=== PATIENT | male | born 1950 | race Caucasian/White ===

== ENCOUNTER 2020-09-09 09:45 | Day surgery (SDC) | payer BC, SELFPAY ==
[2020-09-05 11:46] VITALS: BMI 30.5
--- NOTE | 2020-09-07 14:54 | HO.ANESPROP2 ---
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 Hx of colonoscopy Hx of right inguinal hernia repair Hx of umbilical hernia repair Social History Social History Smoking Status: Unknown if ever smoked Advance Directives: No Advance Directives Information Provided: No Advance Directives on File: No Meds Allergies Allergy/AdvReac Type Severity Reaction Status Date / Time acetaminophen [From Percocet] Allergy Unknown Verified 09/05/20 11:46 oxycodone [From Percocet] Allergy Unknown Verified 09/05/20 11:46 Penicillins Allergy Hives Verified 09/05/20 11:46 phenytoin [From Dilantin] Allergy Unknown Verified 09/05/20 11:46 Home Medications Medication Instructions Recorded Confirmed Type albuterol sulfate 2 puff PO Q6H PRN 09/08/20 09/08/20 History furosemide 1 tab PO DAILY 09/08/20 09/08/20 History hydrocodone-acetaminophen 1 tab PO Q6H PRN 09/08/20 09/08/20 History metoprolol tartrate 1 tab PO BID 09/08/20 09/08/20 History omeprazole 1 cap PO DAILY 09/08/20 09/08/20 History pravastatin 1 tab PO DAILY 09/08/20 09/08/20 History valsartan 2 tab PO DAILY 09/08/20 09/08/20 History Exam Exam Date and Time: September 07, 2020 1454 Height,Weight and Vital Signs: Height 5 ft 10 in Weight 96.615 kg Assessment and Plan Assessment Anesthesia Assessment: Chart Reviewed Documented by User: Terry Mott MD 09/09/20 10:05 PENDING SALE TO [facility] Past Medical History Medical History Arthritis GERD (gastroesophageal reflux disease) History of atrial fibrillation History of basal cell cancer History of diverticulosis Hyperlipidemia Hypertension MARIZOL (obstructive sleep apnea) Surgical History Surgical History History of back surgery History of basal cell carcinoma (BCC) excision 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 Hx of colonoscopy Hx of right inguinal hernia repair Hx of umbilical hernia repair Social History Social History Smoking Status: Unknown if ever smoked Advance Directives: No Advance Directives Information Provided: No Advance Directives on File: No Meds Allergies Allergy/AdvReac Type Severity Reaction Status Date / Time acetaminophen [From Percocet] Allergy Unknown Verified 09/05/20 11:46 oxycodone [From Percocet] Allergy Unknown Verified 09/05/20 11:46 Penicillins Allergy Hives Verified 09/05/20 11:46 phenytoin [From Dilantin] Allergy Unknown Verified 09/05/20 11:46 Home Medications Medication Instructions Recorded Confirmed Type albuterol sulfate 2 puff PO Q6H PRN 09/08/20 09/08/20 History furosemide 1 tab PO DAILY 09/08/20 09/08/20 History hydrocodone-acetaminophen 1 tab PO Q6H PRN 09/08/20 09/08/20 History metoprolol tartrate 1 tab PO BID 09/08/20 09/08/20 History omeprazole 1 cap PO DAILY 09/08/20 09/08/20 History pravastatin 1 tab PO DAILY 09/08/20 09/08/20 History valsartan 2 tab PO DAILY 09/08/20 09/08/20 History Exam Airway Mallampati Class: II TM Dist: >3cm Neck ROM: Full Loose/Missing/Broken Teeth: Yes Heart: RRR Lungs: Satting 95% on RA Assessment and Plan Assessment Anesthesia Assessment: Anesthesia Plan Discussed and Chart Reviewed Final Anesthetic Review NPO: Yes ASA Class: III Final Preanesthetic Review: No Changes in Pt Med Stat, Meds/Allgs Chart Reviewed, Consent Obtained/Reviewed and Anes Risks/Benef Reviewed Patient Risk: Intermediate Procedure Risk: Low Anesthetic Plan Anesthetic Plan: MAC: Disposition: Standard PACU
[2020-09-09 10:27] VITALS: BP 132/79; PULSE 82; RESP 16; TEMP 36.5; O2SAT 97
[2020-09-09 11:17] VITALS: BP 88/57; PULSE 72; RESP 20; TEMP 36.2; O2SAT 98
--- NOTE | 2020-09-09 11:19 | PM.OP ---
Brief Operative Note Date of Service: 09/09/20 Pre-op diagnosis: GERD, Odynophagia Post-op diagnosis: other (Proximal esophageal mass, Hiatal hernia, GERD) Procedure: EGD with biopsies and brushings Surgeon: Jayme Martínez Anesthesia: MAC Estimated blood loss (mL): 4.0 Pathology: other (A. Esophageal mass at 20cm B. Brushings of esophageal mass at 20cm) Condition: stable Disposition: PACU
[2020-09-09 11:32] VITALS: BP 103/67; PULSE 74; RESP 18; TEMP 36.2; O2SAT 95
--- NOTE | 2020-09-09 11:39 | OP_ITS ---
SURGEON: Jayme Martínez MD PREOPERATIVE DIAGNOSIS: POSTOPERATIVE DIAGNOSIS: PROCEDURE PERFORMED: Esophagogastroduodenoscopy with biopsies and brushings. Full consent has been obtained from him for this, including risks of bleeding and perforation. ESTIMATED BLOOD LOSS: COMPLICATIONS: ANESTHESIA: Monitored anesthesia care. ASSISTANTS: SPECIMENS: PREOPERATIVE DIAGNOSES: Gastroesophageal reflux and odynophagia. POSTOPERATIVE DIAGNOSES: Gastroesophageal reflux and odynophagia, very proximal esophageal mass, hiatal hernia. DESCRIPTION OF PROCEDURE: The patient was placed in the left lateral decubitus position. The Olympus video gastroscope was passed in the posterior oropharynx and upper esophagus under direct vision. In the very proximal esophagus, was what appeared to be an ulcerated and friable lesion. I was able to easily pass this with the scope. The scope was advanced to the distal esophagus. The gastroesophageal junction appeared at 39 cm. There was some slight irregularity consistent with reflux, but no evidence of esophagitis nor any definitive evidence of Pineda's mucosa. The scope entered into the stomach. There was a small hiatal hernia. The scope was advanced to the pylorus and duodenum cannulated to the descending portion. The duodenum including the bulb appeared normal without mass or ulceration. The scope was withdrawn back into the stomach. The gastric antrum and body appeared normal with good peristalsis. The scope was retroflexed visualizing the proximal stomach carefully, which appeared normal, without any sign of mass or ulceration. The scope was straightened out and withdrawn back into the esophagus. Biopsies were obtained at the EG junction at 39 cm. The scope was then withdrawn through the remainder of the esophagus. The suspicious lesion was noted at between 18 and 20 cm, just beneath the upper esophageal sphincter. This encompassed approximately 1/3 to 1/2 circumference of the esophagus. The lesion itself was quite friable. It appeared to have some overlying exudate consistent with possible Ciera. Multiple biopsies were obtained from the lesion and it was quite friable. I also obtained cytology brushings. It did seem to extend at least into the very proximal esophagus, although not definitively involving the upper esophageal sphincter. The scope was withdrawn. I was able to visualize the oropharynx fairly well and the vocal cord area appeared normal. I did not visualize any definitive lesions in the oropharynx. The patient tolerated the procedure well and was returned to the recovery area in stable condition. IMPRESSION: 1. Suspicious lesion in the very proximal esophagus, status post biopsies and brushings. Rule out malignancy and/or ciera infection. 2. Hiatal hernia, gastroesophageal reflux. PLAN: The results of the biopsy will be checked. Further plans will be made accordingly depending upon the results in regard to need for oncology consultation, thoracic surgery consultation, and/or ENT referral. If ciera is found I will start him on a course of Diflucan as well. He was advised not to use any aspirin and NSAIDs and he was advised to continue his omeprazole. This has been discussed with his as well. MD CHRISTI Gerber/JACKIE / [id number] MTDD
--- NOTE | 2020-09-09 12:32 | HO.POSTANES ---
Post Anesthesia Evaluation Post Anesthesia Evaluation Vital Signs: Vital Signs Temp Pulse Resp BP Pulse Ox 09/09/20 11:32 97.1 F 74 18 103/67 95 09/09/20 11:17 97.1 F 72 20 88/57 L 98 09/09/20 10:27 97.7 F 82 16 132/79 97 Anesthesia: Monitored Mental Status: Awake Pain Control: Satisfactory Nausea/Vomiting: None Hydration: Adequate Anesthesia-Related Issues: No Anes. Related Issues
== END 2020-09-09 11:58 | disposition home or self-care (01) ==
PROVIDERS: PCP Internal Medicine; Visit Provider Internal Medicine
PROC: 0DJ08ZZ Inspection of Upper Intestinal Tract, Via Natural or Artificial Opening Endoscopic (ICD-10-PCS; CPT 43235; principal; 2020-09-09 10:50)
DX: C15.9 Malignant neoplasm of esophagus, unspecified (principal); K21.9 Gastro-esophageal reflux disease without esophagitis; K44.9 Diaphragmatic hernia without obstruction or gangrene; Z79.899 Other long term (current) drug therapy; Z88.0 Allergy status to penicillin
CPT/HCPCS: 43239; 88112; 88305; 88341; 88342

== ENCOUNTER 2021-01-27 13:36 | Outpatient (REF) | payer MEDICARE, SELFPAY ==
--- NOTE | ~2021-01-27 | CT_ITS ---
EXAMINATION: CT ANGIOGRAM CHEST CLINICAL INFORMATION: Chest pain with breathing COMPARISON: None TECHNIQUE: Multiple axial images were obtained through the chest after the administration of 71 mL of Omnipaque 350 intravenous contrast. Extensive vascular post-processing including two-dimensional and three-dimensional reformatted images were created and reviewed on an independent workstation. This CT examination was performed using dose optimization techniques as appropriate, variously including the following: *Automated exposure control *Adjustment of mA and/or kV according to patient size (this includes techniques or standardized protocols for targeted exams where dose is matched to indication/reason for exam; i.e. extremities or head) *Use of iterative reconstruction technique DLP: 164 mGy-cm FINDINGS: There is adequate opacification of the pulmonary arteries. No pulmonary embolism is seen. The heart is upper normal in size. Cardio. There is mild coronary artery calcification. The thoracic aorta is normal in caliber. There are small mediastinal lymph nodes. No enlarged hilar or mediastinal lymph nodes are seen. There are postsurgical changes from gastric pull-up. There is subsegmental atelectasis at the lung bases, right greater than left. There is a moderate right pleural effusion. There is a tiny left pleural effusion. No chest wall mass or enlarged axillary lymph nodes are seen. There is oral contrast in the colon suggestive of recent fluoroscopic exam. Images through the upper abdomen are unremarkable. There is a left shoulder replacement. There are degenerative changes of the spine. CT/CT angio chest IMPRESSION: No evidence of pulmonary embolism. Postoperative changes from gastric pull-up. Bibasilar atelectasis and pleural effusions, right greater than left. Upper normal-sized heart and mild coronary artery calcification.
--- NOTE | ~2021-01-27 | XR_ITS ---
EXAMINATION: XR CHEST CLINICAL INFORMATION: Persistent cough COMPARISON: Previous CTA of the chest done earlier the same day TECHNIQUE: 2 views of the chest were obtained. FINDINGS: The cardiac silhouette does not appear enlarged. There is a gastric pull-up. Hilar and mediastinal contours are otherwise unremarkable. There is atelectasis at the lung bases. There are small bilateral pleural effusions, right greater than left. There is oral contrast seen in the colon suggestive of recent fluoroscopic exam. There is a left shoulder replacement. There are degenerative changes of the spine. XR/XR chest 2V IMPRESSION: Bibasilar atelectasis and small bilateral pleural effusions, right greater than left.
[2021-01-27] MEDS: iohexoL 350 MG/ML 100 ML INFUS..BTL IV (14:18)
== END 2021-01-27 13:37 | disposition home or self-care (01) ==
LOC: HO.CT 13:36
PROVIDERS: PCP Internal Medicine; Visit Provider Internal Medicine
DX: R07.1 Chest pain on breathing (principal); R05 Cough
CPT/HCPCS: 71046; 71275; Q9967